=== PATIENT | female | born 1970 | race Caucasian/White ===

== ENCOUNTER 2016-08-11 11:11 | Emergency (ER) | payer OTHER ==
[~2016-08-11] VITALS: Ht 175.3 cm; Wt 84.0 kg
[~2016-08-11 11:11] MED LIST: CEPH500C3 PO
[2016-08-11 11:13] VITALS: BP 140/94; PULSE 100; RESP 20; TEMP 98.4; O2SAT 93
[2016-08-11] MEDS ORDERED: LOSA25TA PO (11:31)
[2016-08-11] MEDS ORDERED: LOSA50TA PO (11:31)
[2016-08-11] MEDS ORDERED: ALPR.5 PO (11:32)
[2016-08-11] MEDS ORDERED: TRAM50TA PO (11:34)
[2016-08-11] MEDS ORDERED: SODIUM CHLOR 0.9% 1000 ML INJ 1,000 ML IV SCH (11:40)
[2016-08-11 11:42] VITALS: RESP 17; O2SAT 99
--- NOTE | 2016-08-11 11:42 | PD ---
HPI Chief Complaint: Pain: Acute or Chronic Time Seen by Provider: 11:42 Travel History International Travel<30 days: No Contact w/Intl Traveler<30days: No Traveled to known affect area: No History of Present Illness HPI 46-year-old female presents to emergency department for evaluation of right lower abdominal pain worsening over the last 2 days with associated nausea and diarrhea. Patient states the pain was intermittent but now has become a constant sharp stabbing pain. She denies any fever or chills. Denies any abdominal surgeries. Reports urinary frequency without acute hematuria. Diarrhea is nonbloody. She reports no chest tightness. No difficulty breathing. No other symptoms to report PFS Past Medical History Anxiety: Yes Cardiovascular Problems: Yes Diminished Hearing: No Hypertension: Yes Musculoskeletal: Yes (CHRONIC NECK PAIN) Psychiatric: Yes Tetanus Vaccination: < 5 Years Influenza Vaccination: No ?: Not : 0 Past Surgical History Tonsillectomy: Yes Other Surgery: Yes Social History Alcohol Use: Yes (OCCASSIONALLY) Tobacco Use: No Substance Use: No Allergies-Medications (Allergen,Severity, Reaction): Coded Allergies: Demerol (Verified Allergy, Severe, RESPIRATORY DISTRESS, 08/11/16) Ibuprofen (Verified Adverse Reaction, Severe, Nausea/Vomiting, 08/11/16) Reported Meds & Prescriptions Reported Meds & Active Scripts Active Naprosyn (Naproxen) 500 Mg Tab 500 Mg PO BID PRN Reported Tramadol (Tramadol HCl) 50 Mg Tab 50 Mg PO Q6H PRN Xanax (Alprazolam) 0.5 Mg Tab 0.5 Mg PO Q8H PRN Losartan (Losartan Potassium) 25 Mg Tab 25 Mg PO DAILY@1600 Losartan (Losartan Potassium) 50 Mg Tab 50 Mg PO DAILY Review of Systems Except as stated in HPI: all other systems reviewed are Neg Physical Exam Narrative GENERAL: Well-nourished female patient, ambulatory no acute distress SKIN: Warm and dry. HEAD: Atraumatic. Normocephalic. EYES: Pupils equal and round. No scleral icterus. No injection or drainage. ENT: No nasal bleeding or discharge. Mucous membranes pink and moist. NECK: Trachea midline. No JVD. CARDIOVASCULAR: Elevated rate and rhythm. No murmur appreciated. RESPIRATORY: No accessory muscle use. Clear to auscultation. Breath sounds equal bilaterally. GASTROINTESTINAL: Abdomen soft, nondistended. Tenderness also to palpation in the epigastrium, left upper quadrant, and right lower quadrant area. No guarding. No rebound tenderness. Liver And splenic margins not palpable. GENITOURINARY: Normal external genitalia without lesions or erythema. Vaginal vault without blood or drainage. Cervical os was closed without drainage. No cervical motion tenderness. Uterus nontender and nonenlarged. Bilateral adnexa nontender without masses. MUSCULOSKELETAL: No obvious deformities. No clubbing. No cyanosis. No edema. NEUROLOGICAL: Awake and alert. No obvious cranial nerve deficits. Motor grossly within normal limits. Normal speech. PSYCHIATRIC: Appropriate mood and affect; insight and judgment normal. Data Data Last Documented VS Vital Signs Date Time Temp Pulse Resp B/P Pulse Ox O2 Delivery O2 Flow Rate FiO2 08/11/16 15:45 97.8 78 16 120/77 99 08/11/16 13:00 Room Air Orders Complete Blood Count With Diff (08/11/16 11:40) Comprehensive Metabolic Panel (08/11/16 11:40) Lipase (08/11/16 11:40) Prothrombin Time / Inr (Pt) (08/11/16 11:40) Act Partial Throm Time (Ptt) (08/11/16 11:40) Urinalysis - C+S If Indicated (08/11/16 11:40) Ct Abd/Pel W Iv Contrast(Rout) (08/11/16 11:40) Iv Access Insert/Monitor (08/11/16 11:40) Ecg Monitoring (08/11/16 11:40) Oximetry (08/11/16 11:40) Sodium Chlor 0.9% 1000 Ml Inj (Ns 1000 M (08/11/16 11:40) Sodium Chloride 0.9% Flush (Ns Flush) (08/11/16 11:45) Ed Urine Pregnancytest Poc (08/11/16 11:40) Ketorolac Inj (Toradol Inj) (08/11/16 13:45) Gc And Chlamydia Pcr (08/11/16 13:43) Us Pelvis Comp W Dop Transvag (08/11/16 ) Iohexol 350 Inj (Omnipaque 350 Inj) (08/11/16 15:49) Labs Laboratory Tests Test 08/11/16 08/11/16 08/11/16 11:42 12:00 13:51 White Blood Count 4.9 TH/MM3 Red Blood Count 4.71 MIL/MM3 Hemoglobin 15.3 GM/DL Hematocrit 44.9 % Mean Corpuscular Volume 95.5 FL Mean Corpuscular Hemoglobin 32.4 PG Mean Corpuscular Hemoglobin 33.9 % Concent Red Cell Distribution Width 15.0 % Platelet Count 352 TH/MM3 Mean Platelet Volume 7.2 FL Neutrophils (%) (Auto) 46.8 % Lymphocytes (%) (Auto) 38.5 % Monocytes (%) (Auto) 7.7 % Eosinophils (%) (Auto) 5.5 % Basophils (%) (Auto) 1.5 % Neutrophils # (Auto) 2.3 TH/MM3 Lymphocytes # (Auto) 1.9 TH/MM3 Monocytes # (Auto) 0.4 TH/MM3 Eosinophils # (Auto) 0.3 TH/MM3 Basophils # (Auto) 0.1 TH/MM3 CBC Comment DIFF FINAL Differential Comment Prothrombin Time 10.7 SEC Prothromb Time International 1.0 RATIO Ratio Activated Partial 23.3 SEC Thromboplast Time Sodium Level 141 MEQ/L Potassium Level 4.1 MEQ/L Chloride Level 108 MEQ/L Carbon Dioxide Level 21.1 MEQ/L Anion Gap 12 MEQ/L Blood Urea Nitrogen 9 MG/DL Creatinine 0.57 MG/DL Estimat Glomerular Filtration 114 ML/MIN Rate Random Glucose 94 MG/DL Calcium Level 8.8 MG/DL Total Bilirubin 0.7 MG/DL Aspartate Amino Transf 25 U/L (AST/SGOT) Alanine Aminotransferase 33 U/L (ALT/SGPT) Alkaline Phosphatase 94 U/L Total Protein 7.2 GM/DL Albumin 3.6 GM/DL Lipase 134 U/L Urine Color YELLOW Urine Turbidity HAZY Urine pH 5.5 Urine Specific [place] 1.017 Urine Protein NEG mg/dL Urine Glucose (UA) NEG mg/dL Urine Ketones NEG mg/dL Urine Occult Blood NEG Urine Nitrite NEG Urine Bilirubin NEG Urine Urobilinogen LESS THAN 2.0 MG/DL Urine Leukocyte Esterase MOD Urine WBC 3 /hpf Urine Squamous Epithelial 11 /hpf Cells Urine Transitional Epithelial <1 /hpf Cells Urine Bacteria RARE /hpf Urine Mucus FEW /lpf Microscopic Urinalysis Comment CULT NOT INDICATED Chlamydia trachomatis DNA NOT DETECTED (PCR) Neisseria gonorrhoeae DNA NOT DETECTED (PCR) MDM Medical Decision Making Medical Screen Exam Complete: Yes Emergency Medical Condition: Yes Medical Record Reviewed: Yes Differential Diagnosis Gastritis versus gastroenteritis versus UTI versus ovarian torsion versus endometriosis versus anxiety Narrative Course 46-year-old female presents to emergency department for evaluation of lower abdominal pain. Patient appears overall well and without distress. Vital signs are stable. Tenderness is elicited to palpation over the suprapubic and right lower abdomen. There is no rebound tenderness or guarding. CBC and CMP are unremarkable. Urinalysis is hazy with moderate leukocyte esterase, rare bacteria, few mucus. Cultures not indicated. Last Impressions Abdomen/Pelvis CT 08/11/16 1140 Signed Impressions: Service Date/Time: Thursday, August 11, 2016 13:22 - CONCLUSION: 1. 2.3 cm left ovarian cyst. 2. A 1.5 cm right renal cyst. 3. Fatty infiltration of the liver. 4. A few scattered diverticula. Theodore Sorto MD Abdomen/Pelvis/Transvag US 08/11/16 0000 Signed Impressions: Service Date/Time: Thursday, August 11, 2016 14:32 - CONCLUSION: 1. Bilateral ovarian cysts. 2. There is some fluid seen in the endocervical canal. Nathan Culver MD Results are discussed with my attending physician who is also reviewed the findings and assess the patient. Patient will be discharged home to follow-up with primary care provider. She agrees to return immediately with any acute worsening symptoms. Diagnosis Primary Impression: Abdominal pain Qualified Code: R10.31 - Right lower quadrant abdominal pain Additional Impression: Ovarian cyst Qualified Code: N83.201 - Cysts of both ovaries Referrals: Dedicated Owner Operator Primary Care Physician Patient Instructions: Abdominal Pain (ED), General Instructions Additional Instructions: Follow-up with your primary care Seek gynecology evaluation Tylenol [id number] as directed on package as needed for pain Return immediately with any acutely worsening symptoms Med/Other Pt SpecificInfo: Prescription(s) given Scripts Naproxen (Naprosyn)500 Mg [id number] Mg PO BID PRN (PAIN SCALE 1 TO 10) #30 TAB Ref 0 Prov:Frannie Laureano 08/11/16 Disposition: 01 DISCHARGE HOME Condition: Stable Frannie Laureano Aug 11, 2016 11:42
[2016-08-11 12:15] LABS: AUTOMATED NEUTROPHIL # 2.3 TH/MM3 (1.8-7.7); BASOPHIL # 0.1 TH/MM3 (0-0.2); BASOPHIL % 1.5 % (0.0-2.0); EOSINOPHIL # 0.3 TH/MM3 (0-0.4); EOSINOPHIL % 5.5 % (0.0-4.0); HEMATOCRIT 44.9 % (35.0-46.0); HEMO FLAGS DIFF FINAL; LYMPH % 38.5 % (9.0-44.0); LYMPHOCYTE # 1.9 TH/MM3 (1.0-4.8); MEAN CELL VOLUME 95.5 FL (80.0-100.0); MEAN CORPUSCULAR HEMOGLOBIN 32.4 PG (27.0-34.0); MEAN CORPUSCULAR HGB CONC 33.9 % (32.0-36.0); MONO % 7.7 % (0.0-8.0); NEUT % 46.8 % (16.0-70.0); PLATELET COUNT 352 TH/MM3 (150-450); RED BLOOD COUNT 4.71 MIL/MM3 (4.00-5.30); WHITE BLOOD COUNT 4.9 TH/MM3 (4.0-11.0)
[2016-08-11 12:19] LABS: BACTERIA, URINE RARE /hpf; BLOOD, URINE NEG (NEG); COMMENT (UR) CULT NOT INDICATED; CULTURE IF INDICATED CULT NOT INDICATED; GLUCOSE,URINE NEG (NEG); KETONE, URINE NEG (NEG); MUCUS URINE FEW /lpf (OCC); NITRITE,URINE NEG (NEG); PH, URINE 5.5 (5.0-8.5); SQUAMOUS EPITHELIAL CELL URINE 11 /hpf (0-5); TRANSITIONAL EPI CELLS, URINE <1 /hpf; URINE COLOR YELLOW (YELLW/STRAW)
[2016-08-11 12:26] LABS: APTT (PATIENT) 23.3 SEC (24.3-30.1); PROTHROMBIN TIME - PATIENT 10.7 SEC (9.8-11.6)
[2016-08-11] MEDS: SODIUM CHLORIDE 0.9% FLUSH 5 ML FLUSH IVF PRN ×2 (12:50→13:48)
[2016-08-11 12:51] LABS: ALT (GPT) 33 U/L (10-53); ANION GAP 12 MEQ/L (5-15); AST (GOT) 25 U/L (15-37); BICARBONATE 21.1 MEQ/L (21.0-32.0); BLOOD UREA NITROGEN 9 MG/DL (7-18); CHLORIDE 108 MEQ/L (98-107); GLOMERULAR FILTRATION RATE 114 ML/MIN (>89); POTASSIUM 4.1 MEQ/L (3.5-5.1); SODIUM (NA) 141 MEQ/L (136-145)
[2016-08-11 12:54] LABS: ALKALINE PHOSPHATASE 94 U/L (45-117); TOTAL BILIRUBIN ADULT 0.7 MG/DL (0.2-1.0)
[2016-08-11 13:00] VITALS: BP 130/78; PULSE 76; RESP 16; TEMP 97.8; O2SAT 99
--- NOTE | 2016-08-11 13:37 | RADRPT ---
EXAM DATE/TIME: 08/11/2016 13:22 [facility] COMPARISON: No previous studies available for comparison. INDICATIONS : Abdomen pain. IV CONTRAST: 100 cc Omnipaque 350 (iohexol) IV ORAL CONTRAST: No oral contrast ingested. RADIATION DOSE: 9.96 CTDIvol (mGy) MEDICAL HISTORY : Cardiovascular disease. Hypertension. SURGICAL HISTORY : None. ENCOUNTER: Initial ACUITY: 1 day PAIN SCALE: 5/10 LOCATION: Bilateral abdomen. TECHNIQUE: Volumetric scanning of the abdomen and pelvis was performed. Using automated exposure control and ad justment of the mA and/or kV according to patient size, radiation dose was kept as low as reasonably achievable to obtain optimal diagnostic quality images. FINDINGS: LOWER LUNGS: The visualized lower lungs are clear. LIVER: Homogeneous density without lesion. There is fatty infiltration throughout the liver. There is no di lation of the biliary tree. No calcified gallstones. SPLEEN: Normal size without lesion. PANCREAS: Within normal limits. KIDNEYS: Normal in size and shape. There is no mass, stone or hydronephrosis. Small 1.5 cm right renal cyst. ADRENAL GLANDS: Within normal limits. VASCULAR: There is no aortic aneurysm. BOWEL/MESENTERY: The stomach, small bowel, and colon demonstrate no acute abnormality. There is no free intraperitone al air or fluid. The appendix is unremarkable. A few scattered diverticula are seen along the colon. No inflammatory changes are seen. ABDOMINAL WALL: Within normal limits. RETROPERITONEUM: There is no lymphadenopathy. BLADDER: No wall thickening or mass. REPRODUCTIVE: There is a 2.3 cm left ovarian cyst. The uterus is unremarkable. No definite free fluid in the cul-de -sac. INGUINAL: There is no lymphadenopathy or hernia. MUSCULOSKELETAL: Within normal limits for patient age. CONCLUSION: 1. 2.3 cm left ovarian cyst. 2. A 1.5 cm right renal cyst. 3. Fatty infiltration of the liver. 4. A few scattered diverticula. Theodore Sorto MD on August 11, 2016 at 13:32 Board Certified Radiologist. This report was verified electronically.
[2016-08-11] MEDS ORDERED: KETOROLAC TROMETHAMINE 30 MG/ML (IVP) VIAL IV PUSH ONE (13:45)
[2016-08-11 14:48] VITALS: RESP 16
--- NOTE | 2016-08-11 15:31 | RADRPT ---
EXAM DATE/TIME: 08/11/2016 14:32 [facility] COMPARISON: No previous studies available for comparison. INDICATIONS : Pain. MEDICAL HISTORY : Hypertension. Anxiety. SURGICAL HISTORY : Tonsillectomy. Left foot and knee surgery. ENCOUNTER: Initial ACUITY: 3 days PAIN SCORE: 8/10 LOCATION: Bilateral pelvis MEASUREMENTS: UTERUS: 6.4 x 3.2 x 2.8 cm ENDOMETRIAL STRIPE: 5 mm RIGHT OVARY: 1.6 x 2.0 x 1.3 cm LEFT OVARY: 3.5 x 2.5 x 2.1 cm FINDINGS: UTERUS: The myometrium has homogeneous echotexture without mass. The endometrial stripe is normal in thicknes s. There is a mild amount of fluid in the endocervical canal. RIGHT OVARY: Intact flow. There is a cyst measuring 1.2 x 1.4 cm. LEFT OVARY: Intact flow. There several cysts, the largest measuring 1.8 x 1.5 cm. MISCELLANEOUS: No free fluid. CONCLUSION: 1. Bilateral ovarian cysts. 2. There is some fluid seen in the endocervical canal. Nathan Culver MD on August 11, 2016 at 15:26 Board Certified Radiologist. This report was verified electronically.
[2016-08-11] MEDS ORDERED: NAPR500 PO (15:39)
[2016-08-11 15:45] VITALS: BP 120/77; TEMP 97.8
[2016-08-11] MEDS ORDERED: IOHEXOL 350 MG/ML 10 ML VIAL (for RAD DIAG) IV ONE (15:49)
--- NOTE | 2016-08-11 16:27 | PD ---
Physical Exam Date Seen by Provider: Aug 11, 2016 Time Seen by Provider: 12:00 Narrative I, Dr. Monroe, have reviewed the advance practice practitioner's documentation and am in agreement, met with the patient face to face, made the diagnosis, and the medical decision making was done by me. *My assessment and Findings: Patient seen and evaluated with nurse practitioner , please see nurse practitioner note for further details. Having right lower quadrant abdominal pains. No guarding or rebound. Laboratory Tests Test 08/11/16 08/11/16 11:42 12:00 Eosinophils (%) (Auto) 5.5 % (0.0-4.0) Activated Partial 23.3 SEC Thromboplast Time (24.3-30.1) Chloride Level 108 MEQ/L (98-107) Urine Turbidity HAZY (CLEAR) Urine Leukocyte Esterase MOD (NEG) Urine Bacteria RARE /hpf (NONE) Urine Mucus FEW /lpf (OCC) Last 24 hours Impressions Abdomen/Pelvis CT 08/11/16 1140 Signed Impressions: Service Date/Time: Thursday, August 11, 2016 13:22 - CONCLUSION: 1. 2.3 cm left ovarian cyst. 2. A 1.5 cm right renal cyst. 3. Fatty infiltration of the liver. 4. A few scattered diverticula. Theodore Sorto MD Abdomen/Pelvis/Transvag US 08/11/16 0000 Signed Impressions: Service Date/Time: Thursday, August 11, 2016 14:32 - CONCLUSION: 1. Bilateral ovarian cysts. 2. There is some fluid seen in the endocervical canal. Nathan Culver MD Lab work did not indicate significant metabolic issues or dehydration. No significant leukocytosis. CT of the abdomen pelvis and ultrasound did not reveal any signs of acute processes. At this point, my plan would be to release the patient would follow-up to primary care doctor. Return for any worsening in symptoms as needed. Data Data Last Documented VS Vital Signs Date Time Temp Pulse Resp B/P Pulse Ox O2 Delivery O2 Flow Rate FiO2 08/11/16 15:45 97.8 78 16 120/77 99 08/11/16 13:00 Room Air Orders Complete Blood Count With Diff (08/11/16 11:40) Comprehensive Metabolic Panel (08/11/16 11:40) Lipase (08/11/16 11:40) Prothrombin Time / Inr (Pt) (08/11/16 11:40) Act Partial Throm Time (Ptt) (08/11/16 11:40) Urinalysis - C+S If Indicated (08/11/16 11:40) Ct Abd/Pel W Iv Contrast(Rout) (08/11/16 11:40) Iv Access Insert/Monitor (08/11/16 11:40) Ecg Monitoring (08/11/16 11:40) Oximetry (08/11/16 11:40) Sodium Chlor 0.9% 1000 Ml Inj (Ns 1000 M (08/11/16 11:40) Sodium Chloride 0.9% Flush (Ns Flush) (08/11/16 11:45) Ed Urine Pregnancytest Poc (08/11/16 11:40) Ketorolac Inj (Toradol Inj) (08/11/16 13:45) Wet Prep Profile (08/11/16 13:43) Gc And Chlamydia Pcr (08/11/16 13:43) Us Pelvis Comp W Dop Transvag (08/11/16 ) Iohexol 350 Inj (Omnipaque 350 Inj) (08/11/16 15:49) Labs Laboratory Tests Test 08/11/16 08/11/16 11:42 12:00 White Blood Count 4.9 TH/MM3 Red Blood Count 4.71 MIL/MM3 Hemoglobin 15.3 GM/DL Hematocrit 44.9 % Mean Corpuscular Volume 95.5 FL Mean Corpuscular Hemoglobin 32.4 PG Mean Corpuscular Hemoglobin 33.9 % Concent Red Cell Distribution Width 15.0 % Platelet Count 352 TH/MM3 Mean Platelet Volume 7.2 FL Neutrophils (%) (Auto) 46.8 % Lymphocytes (%) (Auto) 38.5 % Monocytes (%) (Auto) 7.7 % Eosinophils (%) (Auto) 5.5 % Basophils (%) (Auto) 1.5 % Neutrophils # (Auto) 2.3 TH/MM3 Lymphocytes # (Auto) 1.9 TH/MM3 Monocytes # (Auto) 0.4 TH/MM3 Eosinophils # (Auto) 0.3 TH/MM3 Basophils # (Auto) 0.1 TH/MM3 CBC Comment DIFF FINAL Differential Comment Prothrombin Time 10.7 SEC Prothromb Time International 1.0 RATIO Ratio Activated Partial 23.3 SEC Thromboplast Time Sodium Level 141 MEQ/L Potassium Level 4.1 MEQ/L Chloride Level 108 MEQ/L Carbon Dioxide Level 21.1 MEQ/L Anion Gap 12 MEQ/L Blood Urea Nitrogen 9 MG/DL Creatinine 0.57 MG/DL Estimat Glomerular Filtration 114 ML/MIN Rate Random Glucose 94 MG/DL Calcium Level 8.8 MG/DL Total Bilirubin 0.7 MG/DL Aspartate Amino Transf 25 U/L (AST/SGOT) Alanine Aminotransferase 33 U/L (ALT/SGPT) Alkaline Phosphatase 94 U/L Total Protein 7.2 GM/DL Albumin 3.6 GM/DL Lipase 134 U/L Urine Color YELLOW Urine Turbidity HAZY Urine pH 5.5 Urine Specific [place] 1.017 Urine Protein NEG mg/dL Urine Glucose (UA) NEG mg/dL Urine Ketones NEG mg/dL Urine Occult Blood NEG Urine Nitrite NEG Urine Bilirubin NEG Urine Urobilinogen LESS THAN 2.0 MG/DL Urine Leukocyte Esterase MOD Urine WBC 3 /hpf Urine Squamous Epithelial 11 /hpf Cells Urine Transitional Epithelial <1 /hpf Cells Urine Bacteria RARE /hpf Urine Mucus FEW /lpf Microscopic Urinalysis Comment CULT NOT INDICATED MDM Medical Record Reviewed: Yes Supervised Visit with FRANCISCO: Yes Diagnosis Primary Impression: Abdominal pain Qualified Code: R10.31 - Right lower quadrant abdominal pain Additional Impression: Ovarian cyst Qualified Code: N83.201 - Cysts of both ovaries Referrals: Manager Trainee Primary Care Physician Patient Instructions: General Instructions, Ovarian Cyst (ED), Abdominal Pain ( ED) Departure Forms: Tests/Procedures Additional Instruction: Follow-up with your primary care Seek gynecology evaluation Tylenol [id number] as directed on package as needed for pain Return immediately with any acutely worsening symptoms Scripts Naproxen (Naprosyn)500 Mg [id number] Mg PO BID PRN (PAIN SCALE 1 TO 10) #30 TAB Ref 0 Prov:SrideviFrannie ALBARRAN 08/11/16 Disposition: 01 DISCHARGE HOME Condition: Stable Claudia Monroe MD Aug 11, 2016 16:27
[2016-08-11 18:25] LABS: CHLAMYDIA PCR NOT DETECTED (NOT DETECT); NEISSERIA PCR NOT DETECTED (NOT DETECT)
== END 2016-08-11 15:45 | disposition home or self-care (01) ==
LOC: NEPA 11:11
DX: R10.31 Right lower quadrant pain (principal); N83.202 Unspecified ovarian cyst, left side; N83.201 Unspecified ovarian cyst, right side
CPT/HCPCS: 74177; 76830; 76856; 80053; 81001; 83690; 84703; 85025; 85610; 85730; 87491; 87591; 93975; 96361; 96374; 99284; J1885; J7030; Q9967